=== PATIENT | female | born 1995 | race Caucasian/White ===

== ENCOUNTER 2016-09-04 17:06 | Emergency (ER) | payer OTHER ==
[~2016-09-04] VITALS: Ht 160 cm; Wt 60.0 kg
[~2016-09-04 17:06] MED LIST: Z.0.BCPILL PO
[2016-09-04 17:08] VITALS: BP 136/65; PULSE 105; RESP 24; TEMP 98.3; O2SAT 96
[2016-09-04 18:32] VITALS: BP 130/78; PULSE 87; RESP 18; O2SAT 99
--- NOTE | 2016-09-04 18:41 | PD ---
HPI Chief Complaint: GI Complaint Time Seen by Provider: 18:41 Travel History International Travel<30 days: No Contact w/Intl Traveler<30days: No Traveled to known affect area: No History of Present Illness HPI 21-year-old female presents to the emergency department for evaluation nausea, vomiting that started today. Patient states that she worked all night and then went swimming. She states she was diving very shallow, only about 4 feet. She states that after swimming, she started to feel nausea and vomiting. She states that she has abdominal pain around her umbilicus. Patient states she has been unable to keep anything or down today. She denies any fevers or chills. No chest pain or shortness of breath. No diarrhea or constipation. She denies any pelvic pain. She denies any abnormal vaginal discharge. She denies any risk of STDs reporting monogamous relationship with her . Patient denies urinary symptoms. She denies stating she is on control. Patient also takes Nexium for GERD. Patient states that her primary care physician is rechecking her liver enzymes because they were slightly elevated on labs that she is nondrinking on-call or taking any medications that might affect her liver. She denies any other complaints at this time. [facility]LY [facility] Past Medical History Anemia: Yes Diminished Hearing: No GERD: Yes Immunizations Current: Yes ?: Not LMP: AUGUST 19, 2016 Social History Alcohol Use: Yes ([facility]) Tobacco Use: No Substance Use: No Allergies-Medications (Allergen,Severity, Reaction): Coded Allergies: No Known Allergies (Unverified , 09/04/16) Reported Meds & Prescriptions Reported Meds & Active Scripts Active Zofran Odt (Ondansetron Odt) 4 Mg Tab 4 Mg SL Q6HR PRN Reported Control Pills (Miscellaneous Medication) Tab 1 Tab PO DAILY Review of Systems Except as stated in HPI: all other systems reviewed are Neg Physical Exam Narrative GENERAL: Well-nourished, well-developed female patient, ambulatory with a steady gait. Afebrile. SKIN: Focused skin assessment warm/dry. HEAD: Normocephalic. Atraumatic. EYES: No scleral icterus. No injection or drainage. NECK: Supple, trachea midline. No JVD or lymphadenopathy. CARDIOVASCULAR: Regular rate and rhythm without murmurs, gallops, or rubs. RESPIRATORY: Breath sounds equal bilaterally. No accessory muscle use. Lungs sounds are clear to auscultation. GASTROINTESTINAL: Abdomen soft, non-tender, nondistended. No tenderness to palpation. MUSCULOSKELETAL: No cyanosis, or edema. BACK: Nontender without obvious deformity. No CVA tenderness. Data Data Last Documented VS Vital Signs Date Time Temp Pulse Resp B/P Pulse Ox O2 Delivery O2 Flow Rate FiO2 09/04/16 18:58 99 Room Air 09/04/16 18:32 87 18 130/78 09/04/16 17:08 98.3 Orders Complete Blood Count With Diff (09/04/16 18:39) Comprehensive Metabolic Panel (09/04/16 18:39) Lipase (09/04/16 18:39) Urinalysis - C+S If Indicated (09/04/16 18:39) Iv Access Insert/Monitor (09/04/16 18:39) Ecg Monitoring (09/04/16 18:39) Oximetry (09/04/16 18:39) Sodium Chloride 0.9% Flush (Ns Flush) (09/04/16 18:45) Ed Urine Pregnancytest Poc (09/04/16 18:39) Sodium Chlor 0.9% 1000 Ml Inj (Ns 1000 M (09/04/16 18:45) Ondansetron Inj (Zofran Inj) (09/04/16 18:45) Labs Laboratory Tests Test 09/04/16 09/04/16 18:50 19:00 Urine Color YELLOW Urine Turbidity HAZY Urine pH 7.5 Urine Specific [place] 1.020 Urine Protein TRACE mg/dL Urine Glucose (UA) NEG mg/dL Urine Ketones 40 mg/dL Urine Occult Blood NEG Urine Nitrite NEG Urine Bilirubin NEG Urine Urobilinogen LESS THAN 2.0 MG/DL Urine Leukocyte Esterase NEG Urine RBC 2 /hpf Urine WBC 1 /hpf Urine Squamous Epithelial 4 /hpf Cells Urine Mucus FEW /lpf Microscopic Urinalysis Comment CULT NOT INDICATED White Blood Count 8.7 TH/MM3 Red Blood Count 4.57 MIL/MM3 Hemoglobin 13.1 GM/DL Hematocrit 37.9 % Mean Corpuscular Volume 82.8 FL Mean Corpuscular Hemoglobin 28.6 PG Mean Corpuscular Hemoglobin 34.5 % Concent Red Cell Distribution Width 12.6 % Platelet Count 231 TH/MM3 Mean Platelet Volume 8.4 FL Neutrophils (%) (Auto) % Lymphocytes (%) (Auto) % Monocytes (%) (Auto) % Eosinophils (%) (Auto) % Basophils (%) (Auto) % Neutrophils # (Auto) TH/MM3 Lymphocytes # (Auto) TH/MM3 Monocytes # (Auto) TH/MM3 Eosinophils # (Auto) TH/MM3 Basophils # (Auto) TH/MM3 CBC Comment AUTO DIFF Sodium Level 135 MEQ/L Potassium Level 4.3 MEQ/L Chloride Level 103 MEQ/L Carbon Dioxide Level 24.6 MEQ/L Anion Gap 7 MEQ/L Blood Urea Nitrogen 9 MG/DL Creatinine 0.67 MG/DL Estimat Glomerular Filtration 111 ML/MIN Rate Random Glucose 95 MG/DL Calcium Level 9.3 MG/DL Total Bilirubin 0.5 MG/DL Aspartate Amino Transf 20 U/L (AST/SGOT) Alanine Aminotransferase 28 U/L (ALT/SGPT) Alkaline Phosphatase 80 U/L Total Protein 7.2 GM/DL Albumin 3.6 GM/DL Lipase 117 U/L [facility] Medical Decision Making Medical Screen Exam Complete: Yes Emergency Medical Condition: Yes Medical Record Reviewed: Yes Differential Diagnosis Gastroenteritis versus pancreatitis versus viral syndrome versus electrolyte abnormality versus dehydration versus versus UTI Narrative Course 21-year-old female presents to the emergency department for evaluation nausea, vomiting, abdominal pain that started today. Abdomen is nontender on exam. Patient does appear well. IV access established. CBC, CMP, lipase are ordered and pending. Patient is given normal saline 1 L IV bolus, Zofran 4 mg IV. CBC shows no acute abnormality. CMP is unremarkable. Lipase is 117. UA is negative for infection. UPT is negative. My attending physician, Dr. Eden, examined patient and discharged patient after she reviewed laboratory results. Scripts Ondansetron Odt (Zofran Odt)4 Mg Tab4 Mg SL Q6HR PRN (Nausea/Vomiting) #15 TAB Prov:Marcelina Eden MD 09/04/16 Danuta Dave Sep 04, 2016 18:41
[2016-09-04] MEDS ORDERED: ONDANSETRON HCL 4 MG/2 ML VIAL IV PUSH ONE (18:45)
[2016-09-04] MEDS ORDERED: SODIUM CHLORIDE 0.9% FLUSH 10 ML FLUSH IV FLUSH PRN (18:45)
[2016-09-04] MEDS ORDERED: SODIUM CHLOR 0.9% 1000 ML INJ 1,000 ML IV ONE (18:45)
[2016-09-04 18:58] VITALS: O2SAT 99
[2016-09-04 19:21] LABS: HEMATOCRIT 37.9 % (35.0-46.0); MEAN CELL VOLUME 82.8 FL (80.0-100.0); MEAN CORPUSCULAR HEMOGLOBIN 28.6 PG (27.0-34.0); MEAN CORPUSCULAR HGB CONC 34.5 % (32.0-36.0); PLATELET COUNT 231 TH/MM3 (150-450); RED BLOOD COUNT 4.57 MIL/MM3 (4.00-5.30); RED CELL DISTRIBUTION WIDTH 12.6 % (11.6-17.2); WHITE BLOOD COUNT 8.7 TH/MM3 (4.0-11.0)
[2016-09-04 19:23] LABS: HEMO FLAGS AUTO DIFF
[2016-09-04 19:34] LABS: BLOOD, URINE NEG (NEG); COMMENT (UR) CULT NOT INDICATED; CULTURE IF INDICATED CULT NOT INDICATED; GLUCOSE,URINE NEG (NEG); KETONE, URINE 40 mg/dL (NEG); MUCUS URINE FEW /lpf (OCC); NITRITE,URINE NEG (NEG); PH, URINE 7.5 (5.0-8.5); SQUAMOUS EPITHELIAL CELL URINE 4 /hpf (0-5); URINE COLOR YELLOW (YELLW/STRAW)
[2016-09-04 19:39] LABS: ANION GAP 7 MEQ/L (5-15); AST (GOT) 20 U/L (15-37); BICARBONATE 24.6 MEQ/L (21.0-32.0); BLOOD UREA NITROGEN 9 MG/DL (7-18); CHLORIDE 103 MEQ/L (98-107); GLOMERULAR FILTRATION RATE 111 ML/MIN (>89); POTASSIUM 4.3 MEQ/L (3.5-5.1); SODIUM (NA) 135 MEQ/L (136-145)
[2016-09-04 19:40] LABS: ALT (GPT) 28 U/L (10-53)
[2016-09-04 19:42] LABS: ALKALINE PHOSPHATASE 80 U/L (45-117); TOTAL BILIRUBIN ADULT 0.5 MG/DL (0.2-1.0)
[2016-09-04] MEDS ORDERED: ZOFR4TAB3 SL (19:56)
--- NOTE | 2016-09-04 19:56 | PD ---
Data Data Last Documented VS Vital Signs Date Time Temp Pulse Resp B/P Pulse Ox O2 Delivery O2 Flow Rate FiO2 09/04/16 18:58 99 Room Air 09/04/16 18:32 87 18 130/78 09/04/16 17:08 98.3 Orders Complete Blood Count With Diff (09/04/16 18:39) Comprehensive Metabolic Panel (09/04/16 18:39) Lipase (09/04/16 18:39) Urinalysis - C+S If Indicated (09/04/16 18:39) Iv Access Insert/Monitor (09/04/16 18:39) Ecg Monitoring (09/04/16 18:39) Oximetry (09/04/16 18:39) Sodium Chloride 0.9% Flush (Ns Flush) (09/04/16 18:45) Ed Urine Pregnancytest Poc (09/04/16 18:39) Sodium Chlor 0.9% 1000 Ml Inj (Ns 1000 M (09/04/16 18:45) Ondansetron Inj (Zofran Inj) (09/04/16 18:45) Labs Laboratory Tests Test 09/04/16 09/04/16 18:50 19:00 Urine Color YELLOW Urine Turbidity HAZY Urine pH 7.5 Urine Specific [place] 1.020 Urine Protein TRACE mg/dL Urine Glucose (UA) NEG mg/dL Urine Ketones 40 mg/dL Urine Occult Blood NEG Urine Nitrite NEG Urine Bilirubin NEG Urine Urobilinogen LESS THAN 2.0 MG/DL Urine Leukocyte Esterase NEG Urine RBC 2 /hpf Urine WBC 1 /hpf Urine Squamous Epithelial 4 /hpf Cells Urine Mucus FEW /lpf Microscopic Urinalysis Comment CULT NOT INDICATED White Blood Count 8.7 TH/MM3 Red Blood Count 4.57 MIL/MM3 Hemoglobin 13.1 GM/DL Hematocrit 37.9 % Mean Corpuscular Volume 82.8 FL Mean Corpuscular Hemoglobin 28.6 PG Mean Corpuscular Hemoglobin 34.5 % Concent Red Cell Distribution Width 12.6 % Platelet Count 231 TH/MM3 Mean Platelet Volume 8.4 FL Neutrophils (%) (Auto) % Lymphocytes (%) (Auto) % Monocytes (%) (Auto) % Eosinophils (%) (Auto) % Basophils (%) (Auto) % Neutrophils # (Auto) TH/MM3 Lymphocytes # (Auto) TH/MM3 Monocytes # (Auto) TH/MM3 Eosinophils # (Auto) TH/MM3 Basophils # (Auto) TH/MM3 CBC Comment AUTO DIFF Sodium Level 135 MEQ/L Potassium Level 4.3 MEQ/L Chloride Level 103 MEQ/L Carbon Dioxide Level 24.6 MEQ/L Anion Gap 7 MEQ/L Blood Urea Nitrogen 9 MG/DL Creatinine 0.67 MG/DL Estimat Glomerular Filtration 111 ML/MIN Rate Random Glucose 95 MG/DL Calcium Level 9.3 MG/DL Total Bilirubin 0.5 MG/DL Aspartate Amino Transf 20 U/L (AST/SGOT) Alanine Aminotransferase 28 U/L (ALT/SGPT) Alkaline Phosphatase 80 U/L Total Protein 7.2 GM/DL Albumin 3.6 GM/DL Lipase 117 U/L MDM Supervised Visit with GERTRUDIS: Yes Narrative Course The history, exam, and medical decision-making in the associated midlevel provider note were completed with my assistance. I reviewed and agree with the findings presented. I attest that I had a [id number] encounter with the patient on the same day, and personally performed and documented my assessment and findings in the medical record. *My assessment and Findings: This is a 21-year-old female who presents to the emergency department having worked all night and then scuba diving training subsequently developing nausea and vomiting and some loose stools. She's had no abdominal discomfort. I don't think she has any signs of decompression sickness. I think her symptoms are likely related to exhaustion as she hasn't slept much in the last 48 hours. Labs are obtained which were all reassuring. test was negative. Patient feels much better after Zofran and IV hydration. She'll be discharged on Zofran and can follow-up with her primary care physician. Diagnosis Primary Impression: Nausea & vomiting Qualified Code: R11.2 - Non-intractable vomiting with nausea, unspecified vomiting type Patient Instructions: General Instructions Additional Instruction: If you develop severe or worsening abdominal pain, fever>100.4, persistent vomiting or inability to eat or drink return to the emergency department immediately. Follow up with your primary care physician in 1-2 days for a check-up. Med/Other Pt SpecificInfo: Prescription(s) given Scripts Ondansetron Odt (Zofran Odt)4 Mg Tab4 Mg SL Q6HR PRN (Nausea/Vomiting) #15 TAB Prov:Highet,Marcelina H. MD 09/04/16 Disposition: 01 DISCHARGE HOME Condition: Stable Marcelina Eden MD Sep 04, 2016 19:56
[2016-09-04 20:01] LABS: BANDS 2 % (0-6); NEUTROPHIL # MANUAL DIFF 7.7 TH/MM3 (1.8-7.7); PLATELET ESTIMATE SMEAR NORMAL (NORMAL); PLATELET MORPHOLOGY NORMAL (NORMAL); POLYS (SEG NEUTROPHILS) 86 % (16-70); SCAN/DIFF FINAL DIFF MANUAL; WBC DIFF SAMPLE 100
[2016-09-04 20:17] VITALS: BP 112/74
== END 2016-09-04 20:18 | disposition home or self-care (01) ==
LOC: NEPC 17:06
DX: R11.2 Nausea with vomiting, unspecified (principal); R19.7 Diarrhea, unspecified; R10.33 Periumbilical pain; D64.9 Anemia, unspecified; K21.9 Gastro-esophageal reflux disease without esophagitis; Z79.899 Other long term (current) drug therapy
CPT/HCPCS: 80053; 81001; 83690; 84703; 85007; 85027; 96374; 99284; J2405; J7030